=== PATIENT | male | born 1960 ===

== ENCOUNTER 2020-01-26 09:03 | Outpatient (NON) | payer OTHER, SELFPAY ==
[2020-01-26 18:16] LABS: SARS-CoV-2 RNA PCR Positive
== END 2020-01-26 09:04 ==
LOC: ANHCARD 09:03 → ANHCOVIDDT 01-28 11:56
PROVIDERS: PCP Family Medicine; Visit Provider Family Medicine
DX: U07.1 COVID-19 (principal)
CPT/HCPCS: 87635; C9803; U0003